=== PATIENT | female | born 1965 | race Caucasian/White ===

== ENCOUNTER 2022-06-26 04:46 | Day surgery (SDC) | payer OTHER ==
[2022-06-25 10:50] VITALS: BMI 30.7
[2022-06-26] MEDS ORDERED: MIDAZOLAM HCL 2 MG/2 ML SINGLE DOSE VIAL ONE (13:31)
[2022-06-26] MEDS ORDERED: PROPOFOL 20 ML ONE (13:31)
[2022-06-26] MEDS ORDERED: ceFAZolin SODIUM 1 GM VIAL IVPB ONE (13:40)
[2022-06-26] MEDS ORDERED: ceFAZolin SODIUM 1 GM VIAL ONE (13:46)
[2022-06-26 14:21] VITALS: RESP 16
[2022-06-26 15:10] VITALS: BP 156/83; PULSE 66; TEMP 98.2
== END 2022-06-26 15:00 | disposition home or self-care (01) ==
LOC: JASU-SURG 04:46
PROVIDERS: ATTEND Urology
PROC: 0TBB8ZX Excision of Bladder, Via Natural or Artificial Opening Endoscopic, Diagnostic (ICD-10-PCS; principal; 2022-06-26 13:00)
DX: R31.0 Gross hematuria (principal); N30.90 Cystitis, unspecified without hematuria
CPT/HCPCS: 88108; 88305-TC

== ENCOUNTER 2022-09-13 18:05 | Emergency (ER) | payer OTHER ==
[2022-09-13 18:17] VITALS: BP 164/107; PULSE 96; RESP 18; TEMP 98.5; BMI 31.6
[2022-09-13] MEDS ORDERED: LACTATED RINGERS SOLUTION 1000 ML INFUS.BAG IV ONE (18:30)
[2022-09-13] MEDS ORDERED: KETOROLAC TROMETHAMINE 15 MG/ML VIAL ONE (18:39)
[2022-09-13] MEDS: KETOROLAC TROMETHAMINE 15 MG/ML VIAL IVPUSH ONE ×3 (18:52→21:34)
[2022-09-13 19:12] LABS: BASO % 0.8 % (0-2.0); EOS % 1.5 % (0-4.5); HEMATOCRIT 40.2 % (32.4-45.2); HEMOGLOBIN 12.9 GM/dL (10.7-15.3); LYMPH % 30.7 % (8-40); MCH 27.2 pg (25.7-33.7); MCHC 32.2 g/dl (32.0-36.0); MEAN CELL VOLUME 84.5 fl (80-96); MEAN PLT VOLUME 9.7 fl (7.5-11.1); MONO % 5.7 % (3.8-10.2); NEUT % 61.3 % (42.8-82.8); PLATELET COUNT 196 10^3/uL (134-434); RBC 4.76 M/mm3 (3.60-5.2); RDW 14.2 % (11.6-15.6)
[2022-09-13 19:21] LABS: PH,URINE 7.5 (5.0-8.0); URINE APPEARANCE CLEAR; URINE BILIRUBIN NEGATIVE (NEGATIVE); URINE COLOR YELLOW; URINE GLUCOSE (UA) NEGATIVE (NEGATIVE); URINE KETONE NEGATIVE (NEGATIVE); URINE LEUK ESTERASE NEGATIVE (NEGATIVE); URINE NITRITE NEGATIVE (NEGATIVE); URINE PROTEIN NEGATIVE (NEGATIVE); URINE UROBILINOGEN 0.2 mg/dL (0.2-1.0)
[2022-09-13 19:36] LABS: CALCIUM 9.1 mg/dL (8.5-10.1)
[2022-09-13 19:37] LABS: ALBUMIN 3.8 g/dl (3.4-5.0); BLOOD UREA NITROGEN 12.2 mg/dL (7-18)
[2022-09-13 19:40] LABS: CREATININE 0.9 mg/dL (0.55-1.3)
[2022-09-13 19:41] LABS: BILIRUBIN,TOTAL 0.4 mg/dL (0.2-1); TOT PROT 7.6 g/dl (6.4-8.2)
[2022-09-13] MEDS ORDERED: METHOCARBAMOL 500 MG TABLET PO ONE (21:09)
[2022-09-13] MEDS ORDERED: LIDOCAINE 5% TOPICAL PATCH TP ONE (21:09)
[2022-09-13] MEDS ORDERED: LIDOCAINE 5% TOPICAL PATCH ONE (21:40)
[2022-09-13] MEDS ORDERED: METHOCARBAMOL 500 MG TABLET ONE (21:40)
[2022-09-13] MEDS ORDERED: LIDOCAINE PATCH REMOVAL MC SCH (22:00)
== END 2022-09-13 21:51 | disposition home or self-care (01) ==
LOC: JER 18:05
PROC: 3E0333Z Introduction of Anti-inflammatory into Peripheral Vein, Percutaneous Approach (ICD-10-PCS; principal; 2022-09-13)
DX: R30.0 Dysuria (principal); R10.2 Pelvic and perineal pain; M62.830 Muscle spasm of back
CPT/HCPCS: 36415; 71046-TC-FY; 74176-TC; 80053; 81003; 84484; 84703; 85025; 87086; 99285-25

== ENCOUNTER 2022-11-14 04:51 | Day surgery (SDC) | payer OTHER ==
[2022-11-08 12:39] VITALS: BMI 30.7
[2022-11-14] MEDS ORDERED: BUPIVACAINE HCL/PF 0.5% (5MG/ML) 10 ML VIAL ONE ×3 (07:23→07:41)
[2022-11-14] MEDS ORDERED: ACETAMINOPHEN 325 MG TABLET (FP) PO PRN ×2 (07:40→09:31)
[2022-11-14] MEDS ORDERED: IBUPROFEN 600 MG TABLET (FP) PO PRN (07:40)
[2022-11-14] MEDS ORDERED: PROPOFOL 20 ML ONE (07:41)
[2022-11-14] MEDS ORDERED: MIDAZOLAM HCL 2 MG/2 ML SINGLE DOSE VIAL ONE (07:41)
[2022-11-14] MEDS ORDERED: LIDOCAINE HCL/PF 2% SDV 5ML VIAL ONE (07:41)
[2022-11-14] MEDS ORDERED: ROCURONIUM BROMIDE 50 MG/5 ML SYRINGE ONE ×2 (07:41→08:44)
[2022-11-14] MEDS ORDERED: KETAMINE HCL 500 MG/10 ML VIAL ONE (07:42)
[2022-11-14] MEDS ORDERED: LACTATED RINGERS SOLUTION 1,000 ML IV SCH (07:45)
[2022-11-14] MEDS ORDERED: ceFAZolin SODIUM 1 GM VIAL IVPB ONE (07:59)
[2022-11-14] MEDS ORDERED: ceFAZolin SODIUM 1 GM VIAL ONE (08:03)
[2022-11-14] MEDS ORDERED: BUPIVACAINE HCL/PF 0.5% (5MG/ML) 10 ML VIAL NR ONE ×3 (08:03→09:14)
[2022-11-14] MEDS ORDERED: HYDROmorphone HCl 2 MG/ML VIAL ONE (08:05)
[2022-11-14] MEDS ORDERED: GLYCOPYRROLATE 0.2 MG/1 ML VIAL ONE (08:28)
[2022-11-14] MEDS ORDERED: NEOSTIGMINE METHYLSULFATE 0.5 MG/1 ML - 10 ML MDV ONE (08:28)
[2022-11-14] MEDS ORDERED: DEXAMETHASONE SOD PHOSPHATE 4 MG/1 ML VIAL ONE (09:13)
[2022-11-14] MEDS ORDERED: ONDANSETRON 4 MG/2 ML VIAL ONE ×2 (09:13→12:02)
[2022-11-14] MEDS ORDERED: ONDANSETRON 4 MG/2 ML VIAL IVPUSH PRN (09:44)
[2022-11-14] MEDS ORDERED: ACETAMINOPHEN INJECTION 100 ML IVPB ONE (09:54)
[2022-11-14] MEDS ORDERED: IBUPROFEN 800 MG/8 ML IJ IVPB ONE (09:54)
[2022-11-14] MEDS: ACETAMINOPHEN 1000 MG/100 ML BAG IVPB PRN ×2 (10:00→17:12)
[2022-11-14] MEDS: IBUPROFEN 800 MG/8 ML IJ IVPB PRN ×2 (10:15→20:57)
[2022-11-14] MEDS ORDERED: PATIENT'S OWN MEDICATION (NON-FORMULARY) (Acetaminophen [Tylenol] 325 MG Capsule) PO SCH (12:00)
[2022-11-14] MEDS ORDERED: ONDANSETRON 4 MG/2 ML VIAL IVPB ONE (12:05)
[2022-11-14 15:54] LABS: HEMATOCRIT 39.2 % (32.4-45.2); HEMOGLOBIN 12.6 GM/dL (10.7-15.3); MCH 27.6 pg (25.7-33.7); MCHC 32.1 g/dl (32.0-36.0); MEAN CELL VOLUME 85.8 fl (80-96); MEAN PLT VOLUME 9.3 fl (7.5-11.1); PLATELET COUNT 150 10^3/uL (134-434); RBC 4.56 M/mm3 (3.60-5.2); RDW 13.9 % (11.6-15.6); WHITE BLOOD COUNT 11.8 K/mm3 (4.0-10.0)
[2022-11-14] MEDS: CEFAZOLIN 1 GM in DEXTROSE 5%-WATER - 50 ML IVPB SCH (17:11)
[2022-11-15] MEDS: CEFAZOLIN 1 GM in DEXTROSE 5%-WATER - 50 ML IVPB SCH ×2 (01:22→09:50)
[2022-11-15] MEDS: IBUPROFEN 800 MG/8 ML IJ IVPB PRN (06:48)
[2022-11-15 07:41] LABS: BASO % 0.3 % (0-2.0); EOS % 0.1 % (0-4.5); HEMATOCRIT 35.3 % (32.4-45.2); HEMOGLOBIN 11.7 GM/dL (10.7-15.3); LYMPH % 19.5 % (8-40); MCH 28.1 pg (25.7-33.7); MCHC 33.3 g/dl (32.0-36.0); MEAN CELL VOLUME 84.2 fl (80-96); MEAN PLT VOLUME 9.6 fl (7.5-11.1); MONO % 7.7 % (3.8-10.2); NEUT % 72.4 % (42.8-82.8); PLATELET COUNT 168 10^3/uL (134-434); RBC 4.19 M/mm3 (3.60-5.2); RDW 14.1 % (11.6-15.6); WHITE BLOOD COUNT 10.4 K/mm3 (4.0-10.0)
[2022-11-15] MEDS ORDERED: amLODIPine BESYLATE 5 MG TABLET (FP) PO SCH (10:00)
[2022-11-15 11:32] VITALS: BP 116/74; PULSE 76; RESP 16; TEMP 99
== END 2022-11-15 11:20 | disposition home or self-care (01) ==
LOC: JASUSAT 04:51 → J3W 13:54 → JASUSAT 11-15 11:20
PROVIDERS: ATTEND Obstetrics & Gynecology
PROC: 0UB24ZZ Excision of Bilateral Ovaries, Percutaneous Endoscopic Approach (ICD-10-PCS; principal; 2022-11-14 07:30)
DX: D27.0 Benign neoplasm of right ovary (principal); D27.1 Benign neoplasm of left ovary
CPT/HCPCS: 36415; 85025; 85027; 86850; 86900; 86901; 88307-TC; 88311-TC; 88342-TC; 94760